=== PATIENT | male | born 1960 | race Caucasian/White ===

== ENCOUNTER 2021-04-25 12:52 | Day surgery (SDC) | payer OTHER, SELFPAY ==
[2021-04-25] VITALS (8 sets, daily range): BP systolic 106–156; BP diastolic 79–97; PULSE 62–77; RESP 16; TEMP 36.3; O2SAT 93–97; BMI 29.9
--- NOTE | 2021-04-25 14:30 | FORE_PTH ---
PATIENT: ANGIE FISCHER LOC: [facility] [place] U#:[id number] AGE/SX: 60/M ROOM: RE04/25/[address]: Dr. Evelia Meyer MD : [id number] BED: DIS: 04/25/2021 SPEC #: [id number] RECD: 04/28/21 07:53 STATUS: KEELY REAna Maria #: [id number] MARCIE: 04/25/21 14:[address]: Evelia Meyer DEPT: SURGICAL PATHOLOGY RECD BY: Savita Powers ENTERED: 04/28/21 09:42 SP TYPE: FOREIGN B OTHR DR: Dr. Kiel Garcia MD Tissues: FOREIGN BODY Procedures: Surgery Specimen Level I HEADER OPERATION: Battery change, spinal cord stimulator PRE-OP DIAGNOSIS: Exhausted spinal cord stimulator battery TISSUE SUBMITTED: End of life battery for gross only MICROSCOPIC DIAGNOSIS End of life spinal cord battery (removal): Unremarkable battery (gross diagnosis only). AM:reymundo 04/29/2021 MICROSCOPIC DESCRIPTION Slides are reviewed. GROSS DESCRIPTION Received in fixative is one container labeled with the patient's name and designated end of life battery. The specimen consists of a part metallic/part plastic battery bearing the following inscription ?Akhil, S/N [id number]? and measuring 5.8 x 5.8 x 1.5 cm. No tissue is submitted. This is for gross diagnosis only. / AM:reymundo 04/28/2021 CPT: 64082
[2021-04-25] MEDS: Lidocaine 1% /Epi 1:100 (50ml) 50 ML VIAL (14:54)
== END 2021-04-25 23:59 | disposition home or self-care (01) ==
LOC: SDC 12:57 → AC 13:00
PROVIDERS: PCP Family Medicine; Visit Provider Anesthesiology Pain Medicine
PROC: (CPT 63688; principal; 2021-04-25 14:15)
DX: Z45.42 Encounter for adjustment and management of neurostimulator (principal); M51.26 Other intervertebral disc displacement, lumbar region; M96.1 Postlaminectomy syndrome, not elsewhere classified; S33.5XXA Sprain of ligaments of lumbar spine, initial encounter; X58.XXXA Exposure to other specified factors, initial encounter; F17.200 Nicotine dependence, unspecified, uncomplicated; Z20.822 Contact with and (suspected) exposure to COVID-19
CPT/HCPCS: 63685; 00300; 87426; 88300; J7120; J2405

== ENCOUNTER 2024-10-11 15:46 | Emergency (ER) | payer OTHER, SELFPAY ==
[2024-10-11 15:47] VITALS: BP 176/112; PULSE 102; RESP 17; TEMP 37.2; O2SAT 98; BMI 29.7
--- NOTE | 2024-10-11 16:18 | CT_ITS ---
PROCEDURE: ABDOMEN/PELVIS W IV CONT ONLY 10/11/2024 REASON FOR EXAM: SWELLING, BACK AND LEFT BUTTOCKS TECHNIQUE: ABDOMEN/PELVIS W IV CONT ONLY Coronal and Sagittal reconstruction series were provided. CONTRAST: Isovue 370 VOLUME: 95 mL One or more dose reduction techniques were used (e.g., Automated exposure control, adjustment of the mA and/or kV according to patient size, use of iterative reconstruction technique. RADIATION DOSE SUMMARY: CTDlvol: 6.65+ 21.18 mGy DLP: 1277.14 mGycm COMPARISON: None. FINDINGS: Fat containing umbilical hernia. A spinal stimulator is present. L4-5 posterior fusion. Degenerative changes of the non fused levels. Minimal retrolisthesis of L1 on L2, L2 on L3, and L3 on L4. Mild atherosclerosis. Normal caliber abdominal aorta. No suspicious lymphadenopathy. Subcentimeter hepatic lesions which are too small to characterize. Cholelithiasis is present. No adjacent inflammatory changes are visualized wall thickening. The pancreas, spleen, and adrenals are unremarkable. Symmetric enhancement of the bilateral kidneys. Left kidney punctate nonobstructive nephrolithiasis (suboptimally visualized with intravenous contrast. No ureteral calculi or hydroureteronephrosis. The urinary bladder is unremarkable. Colonic diverticulosis. No adjacent inflammatory changes. Normal caliber large and small bowel. CT/Abdomen/Pelvis W IV Cont ONLY IMPRESSION: Left kidney nonobstructive nephrolithiasis. Cholelithiasis. Spondylosis and spondylolisthesis. L4-5 posterior fusion. Reading Location: [place] [id number]
--- NOTE | 2024-10-11 16:27 | ED.VIS.BACK ---
HPI History of Present Illness Chief Complaint: Back Informant: patient Narrative Narrative: Patient is 63-year-old male with history of spinal stimulator implant as well as spinal fusion who follows with Dr. Meyer presenting with swelling to his right buttocks and up his spine over his spinal stimulator. He states it started with swelling in his right buttocks area about a month ago but lately has had increased swelling of the lumbar spine as well. He denies associated drainage. Denies any fever or chills. States he is having a lot of pain and feels that his right leg is been a little weaker lately. Denies any bowel or bladder symptoms. States sitting in a car at a dining table makes the pain worse. He had previously taken ibuprofen with no significant relief. He does not take any opioid pain medication stating that it does not really help and gives him insomnia. Given the level of swelling he was concerned about waiting for outpatient imaging and came to the ER. [facility] Medical History Carpal tunnel syndrome on both sides Wears glasses Arthritis Injury of back Former smoker History of fracture of right ankle Home Medications ?Medication ?Instructions ?Recorded ?Last Taken ?Type cholecalciferol (vitamin D3) 50 50 mcg PO DAILY 04/24/21 Unknown History mcg (2,000 unit) capsule (Vitamin D3) methylprednisolone 4 mg tablets in See Rx Instructions PO .COMPLEX 10/11/24 Unknown Rx a dose pack (Medrol (North)) #21 tabs Allergy/AdvReac Type Severity Reaction Status Date / Time No Known Allergies Allergy Verified 10/11/24 15:50 Surgical History H/O spinal fusion History of tonsillectomy History of back surgery Social History Smoking Status: Current every day smoker tobacco type: cigarettes ROS ROS ED Constitutional Constitutional ED: Denies chills or fever(s) Gastrointestinal Gastrointestinal: Denies abdominal pain, nausea or vomiting Genitourinary Genitourinary ED: Denies dysuria or urinary frequency Musculoskeletal Musculoskeletal: Reports back pain Integumentary Reports other Details: swelling top right buttocks and over lumbar spine ; Denies rash Psychiatric Psychiatric: Denies anxiety Hematologic/Lymphatic Hematologic/Lymphatic: Denies easy bleeding or easy bruising EXAM Physical Exam Const Vital Signs: 10/11/24 15:47 10/11/24 16:35 10/11/24 17:17 Temperature 98.9 F Temperature Source Oral Pulse Rate 102 H 83 78 Respiratory Rate 17 16 16 Blood Pressure 176/112 H 174/93 H 159/94 H Blood Pressure Mean 133 120 115 Pulse Ox 98 97 94 Oxygen Delivery Method Room Air Room Air Room Air 10/11/24 19:00 10/11/24 19:30 Temperature 98.9 F Temperature Source Pulse Rate 64 68 Respiratory Rate 16 16 Blood Pressure 155/91 H 173/97 H Blood Pressure Mean 112 122 Pulse Ox 99 100 Oxygen Delivery Method Room Air Positive well nourished and well developed General Appearance ED: well developed and NAD HEENT Reports moist mucous membranes Neck supple Neck Narrative: No meningeal signs Resp normal respiratory effort and clear to auscultation bilaterally Cardio regular rate, regular rhythm and no murmurs GI normal to inspection, nondistended, normoactive bowel sounds, soft to palpation and non-tender Back/Spine Back/Spine Narrative: Surgical scars present over the lumbar spine. There is approximately 3 cm area fluctuance over lumbar spine at approximate level of L2. No associated drainage. No significant skin changes there i.e. erythema, induration or warmth. No midline bony tenderness present. Decreased range of motion of the lumbar spine on exam. Extremity normal to inspection Extremity Narrative: Able to balance on heels and toes with only some assistance. Soft tissue swelling and fluctuance appreciated over the right buttocks over the area of his spinal stimulator battery pack implant. No associated skin changes over this. No associated drainage. Neuro oriented x3 and no sensory deficits noted Sensorium / Orientation: alert Motor Exam: strength 5/5 throughout Psych mental status grossly normal Skin no rashes or lesions noted MDM MDM MDM Narrative Medical decision making narrative: Patient is 63-year-old male with chronic back pain and prior spinal stimulator, manage by Dr. Meyer, presenting for approximately 6 weeks right buttocks swelling and then swelling along his lumbar spine. differential includes CSF leak, abscess , and seroma. I spoke with Dr. Meyer who recommends CT for further evaluation. States that if it does not look like it is infected he will follow-up with him in the office given the subacute nature of this. Suspicion is this is more likely a CSF leak and not a seroma given that he is so far out postop almeida. Patient is given a dose of morphine for his chronic back pain and emergency with some improvement. Lab work very reassuring including CBC, BMP, lactate, CRP and ESR. None of this is consistent with infection. CT shows small volume fluid collection surrounding the spinal stimulator lead within the posterior superficial soft tissue measures 20 x 37 mm. Likely abscess or CSF leak. Given that he does not have any infectious symptoms or lab were consistent with infection/meningeal symptoms I will left lower suspicion for abscess. I will have him follow-up with . Pain management. Patient is agreeable with this. I will trial a Medrol Dosepak to see if it helps with his pain. He does not have any meningeal symptoms. He does not have any lightheadedness or symptoms consistent with herniation/low CSF pressure. I do not think he needs emergent neurosurgical consult or transfer. Lab Data Attestation: I reviewed the patient's lab results. Labs: Laboratory Results - last 24 hr 10/11/24 16:30 WBC 10.9 RBC 5.62 Hgb 17.2 H Hct 51.2 MCV 91.1 MCH 30.6 MCHC 33.6 RDW Std Deviation 47.2 H RDW Coeff of Christina 14.1 Plt Count 267 MPV 10.6 Immature Gran % (Auto) 0.800 Neut % (Auto) 59.9 Lymph % (Auto) 30.2 [place] % (Auto) 5.5 Eos % (Auto) 2.7 Baso % (Auto) 0.9 Absolute Neuts (auto) 6.5 Absolute Lymphs (auto) 3.29 Nucleated RBC % 0 ESR 12 Sodium 144 Potassium 4.1 Chloride 108 Carbon Dioxide 21.9 Anion Gap 14 BUN 11 Creatinine 1.15 Estim Creat Clear Calc 72.95 Est GFR (MDRD) Non-Af 72 BUN/Creatinine Ratio 9.9 L Glucose 85 Lactic Acid 1.1 Calcium 9.6 C-React Prot Ext Range < 3.00 Radiography Diagnostic Testing: Clinical Impression(s) from Imaging Studies Abdomen/Pelvis CT 10/11/24 16:18 IMPRESSION: Left kidney nonobstructive nephrolithiasis. Cholelithiasis. Spondylosis and spondylolisthesis. L4-5 posterior fusion. Reading Location: [id number] Discharge Plan Triage Chief Complaint: Back ED Provider: Sandy Witt Dx/Rx/DC Orders Clinical Impression: Acute exacerbation of chronic low back pain, Fluid collection at surgical site Instructions: ED Chronic Pain Prescriptions: New methylprednisolone [Medrol (North)] 4 mg tablets,dose pack See Rx Instructions .ROUTE .COMPLEX Qty: 21 0RF Rx Instructions: for 6 days No Action cholecalciferol (vitamin D3) [Vitamin D3] 50 mcg (2,000 unit) Capsule 50 mcg PO DAILY Primary Care Provider: Emely Conde Referrals: Kiel Garcia MD [Non-Staff] - Activity Restrictions/Additional Instructions: There is a fluid collection around her spinal stimulator. Concerned that there could be a slow leak of CSF fluid. Please continue follow-up with Dr. Meyer. If you develop severe headache, fever, neck stiffness, vision changes or new neurologic symptoms please return to the emergency room. Print Language: Mongolian Disposition Disposition: Home, Self Care
[2024-10-11 16:35] VITALS: BP 174/93; PULSE 83; RESP 16; O2SAT 97
[2024-10-11 17:17] VITALS: BP 159/94; PULSE 78; RESP 16; O2SAT 94
[2024-10-11 17:21] LABS: Hematocrit 51.2 % (40-54); Hemoglobin 17.2 g/dL (13.0-16.5); Immature Granulocytes Count 0.090 X10^3/uL (0.0-0.0); Mean Corp Hgb Conc 33.6 g/dL (32-36); Mean Corpuscular Volume 91.1 fL (80-94); Mean Platelet Vol. 10.6 fl (6.2-12.0); NRBC Flagged by Analyzer 0 % (0-5); Platelet Count 267 K/mm3 (150-450); RBC Distribution Width CV 14.1 % (11.6-14.6); RBC Distribution Width SD 47.2 fl (35.1-43.9); Red Blood Count 5.62 M/mm3 (4.6-6.2); White Blood Count 10.9 K/mm3 (4.4-11.0)
[2024-10-11 17:22] LABS: Anion Gap 14 (5-15); BUN 11 mg/dL (4-19); BUN/Creat Ratio 9.9 RATIO (10-20); Calcium,Total 9.6 mg/dL (7.6-11.0); Carbon Dioxide 21.9 mmol/L (21.0-32.0); Chloride 108 mmol/L (98-108); Estimated Creatinine Clearance 72.95 ml/min (50-250); Glucose 85 mg/dL (70-99); Potassium 4.1 mmol/L (3.3-5.1)
[2024-10-11 17:24] LABS: CRP < 3.00 mg/L (0.0-3.0)
[2024-10-11 19:00] VITALS: BP 155/91; PULSE 64; RESP 16; O2SAT 99
[2024-10-11 19:30] VITALS: BP 173/97; PULSE 68; RESP 16; TEMP 37.2; O2SAT 100
== END 2024-10-11 20:20 | disposition home or self-care (01) ==
PROVIDERS: Emergency Provider Emergency Medicine; PCP Nurse Practitioner Family; Visit Provider Emergency Medicine
DX: M54.50 Low back pain, unspecified (principal); G89.29 Other chronic pain; F17.210 Nicotine dependence, cigarettes, uncomplicated; Z96.82 Presence of neurostimulator; T88.8XXA Other specified complications of surgical and medical care, not elsewhere classified, initial encounter
CPT/HCPCS: 74177; 80048; 83605; 85025; 85652; 86140; 96374; 96375; 96376; 99283; A4216; J2405

== ENCOUNTER 2024-10-20 09:12 | Emergency (ER) | payer OTHER, SELFPAY ==
[2024-10-20 09:13] VITALS: BP 153/94; PULSE 89; RESP 14; TEMP 36.6; O2SAT 98; BMI 29.3
[2024-10-20 09:19] VITALS: BP 153/94; PULSE 88; RESP 16; TEMP 36.6; O2SAT 99
[2024-10-20 09:46] LABS: Hematocrit 49.8 % (40-54); Hemoglobin 16.8 g/dL (13.0-16.5); Immature Granulocytes Count 0.100 X10^3/uL (0.0-0.0); Mean Corp Hgb Conc 33.7 g/dL (32-36); Mean Corpuscular Volume 89.9 fL (80-94); Mean Platelet Vol. 9.9 fl (6.2-12.0); NRBC Flagged by Analyzer 0 % (0-5); Platelet Count 227 K/mm3 (150-450); RBC Distribution Width CV 14.1 % (11.6-14.6); RBC Distribution Width SD 46.8 fl (35.1-43.9); Red Blood Count 5.54 M/mm3 (4.6-6.2); White Blood Count 12.1 K/mm3 (4.4-11.0)
[2024-10-20] MEDS: Vancomycin HCl 1,250 MG in 0.9% Normal Saline (250mL Bag) 250 ML 167 MG IV (10:20)
[2024-10-20 10:21] VITALS: BP 120/73; PULSE 71; RESP 16; TEMP 36.4; O2SAT 95
[2024-10-20 10:27] LABS: Anion Gap 11 (5-15); BUN 15 mg/dL (4-19); BUN/Creat Ratio 14.0 RATIO (10-20); Calcium,Total 9.2 mg/dL (7.6-11.0); Carbon Dioxide 22.0 mmol/L (21.0-32.0); Chloride 110 mmol/L (98-108); Estimated Creatinine Clearance 77.29 ml/min (50-250); Glucose 98 mg/dL (70-99); Potassium 4.0 mmol/L (3.3-5.1)
[2024-10-20 11:00] VITALS: BP 124/73; PULSE 73; RESP 16; TEMP 36.6; O2SAT 98
[2024-10-20 12:23] VITALS: BP 147/79; PULSE 78; RESP 18; TEMP 36.6; O2SAT 99
--- NOTE | 2024-10-20 12:46 | EX.ED.DYSGE1 ---
HPI History of Present Illness Chief Complaint: Wound Informant: patient and spouse/S.O. Narrative Narrative: Patient has had a longtime spinal stimulator in his low back, for about 10 years but a new one was placed about 3.5 years ago. For the past 2 or 3 weeks, he has been having pain at that area and some swelling. He was seen here and had a CT scan that did not show anything, his pain management doctor, Dr. Meyer, told him he would need an MRI which they are trying to set up. In the meantime overnight, the area spontaneously burst open and now is draining fluid. He denies any other new symptoms or problems. He denies headache, neck stiffness, confusion, fevers or chills, pain or numbness in his legs, abdominal pain, dyspnea. PFSH PFS Medical History Carpal tunnel syndrome on both sides Wears glasses Arthritis Injury of back Former smoker History of fracture of right ankle Home Medications ?Medication ?Instructions ?Recorded ?Last Taken ?Type cholecalciferol (vitamin D3) 50 50 mcg PO DAILY 04/24/21 Unknown History mcg (2,000 unit) capsule (Vitamin D3) doxycycline monohydrate 100 mg 100 mg PO BID #20 CAPSULES 10/20/24 Unknown Rx capsule Allergy/AdvReac Type Severity Reaction Status Date / Time No Known Allergies Allergy Verified 10/20/24 09:13 Surgical History H/O spinal fusion History of tonsillectomy History of back surgery Social History Smoking Status: Current every day smoker tobacco type: cigarettes ROS ROS ED Constitutional Constitutional ED: Denies chills or fever(s) Eyes Eyes: Denies change in vision or diplopia ENT ENT ED: Denies rhinorrhea or sore throat Cardiovascular Cardiovascular: Denies chest pain or palpitations Respiratory/Chest Respiratory/Chest: Denies cough or dyspnea Gastrointestinal Gastrointestinal: Denies abdominal pain, diarrhea, nausea or vomiting Genitourinary Genitourinary ED: Denies dysuria or hematuria Musculoskeletal Musculoskeletal: Reports back pain; Denies neck pain Integumentary Reports as per HPI, abscess and wounds; Denies rash Neurologic Neurologic: Denies headache(s), paresthesias or weakness Psychiatric Psychiatric: Denies anxiety or suicidal thoughts EXAM Physical Exam Const Vital Signs: 10/20/24 09:13 10/20/24 09:19 10/20/24 10:21 Temperature 97.8 F 97.9 F 97.6 F L Temperature Source Oral Oral Oral Pulse Rate 89 88 71 Respiratory Rate 14 16 16 Blood Pressure 153/94 H 153/94 H 120/73 Blood Pressure Mean 113 113 88 Pulse Ox 98 99 95 Oxygen Delivery Method Room Air Room Air Room Air 10/20/24 11:00 10/20/24 12:23 Temperature 97.8 F 98 F Temperature Source Oral Pulse Rate 73 78 Respiratory Rate 16 18 Blood Pressure 124/73 H 147/79 H Blood Pressure Mean 90 101 Pulse Ox 98 99 Oxygen Delivery Method Room Air Positive well nourished and well developed General Appearance ED: well developed and NAD HEENT Reports moist mucous membranes normocephalic and atraumatic Eyes PERRL and EOMs intact bilaterally Neck full ROM and supple Resp normal respiratory effort and clear to auscultation bilaterally Cardio regular rate, regular rhythm and no murmurs GI non-tender and non-distended Auscultation: normoactive bowel sounds Palpation: soft Back/Spine no CVA tenderness Back/Spine Narrative: Well-healed surgical incision mid low back, at the caudal aspect of it there is a pinhole sized opening and pus is easily expressible from it. There is no overlying erythema in the area. General Back: other Limited range of motion due to pain. Lying in left lateral decubitus. Extremity normal to inspection General Extremety ED: Negative for edema, pulses abnormal or tenderness General Extremity: Negative for edema or pulses abnormal Neuro oriented x3, CN's II-XII intact bilaterally and no sensory deficits noted Sensorium / Orientation: awake and alert Motor Exam: strength 5/5 throughout Skin no rashes or lesions noted and no wounds MDM MDM MDM Narrative Medical decision making narrative: Clinically this is consistent with an abscess now that it is draining, but if it was not it would be difficult to tell given the induration and scar tissue from his remote surgery. We swabbed the area with chlorhexidine to sterilize it and then expressed fresh pus from the area to send for culture and then expressed as much as we could from the area to help drain it. Am not comfortable cutting it open since there is a stimulator there and I do not know how deep it is. We obtained some labs he has a mild leukocytosis, but he has normal vital signs and is well-appearing otherwise and does not septic. He is neurologically intact throughout. Nurses put a dressing on this area, I discussed with his pain management doctor, he agrees with giving him the dose of vancomycin that we gave him here in the IV, and then covering for MRSA and recommends that he be discharged on antibiotics to take for the next 4 days or so over the weekend, and then he will see him after that to schedule removal of the hardware and go from there, stating that emergently removing it and admitting him is not necessary. Discussed with the patient and family and given a prescription for doxycycline, as it has similar MRSA coverage with our 2024 antibiogram to Bactrim with the additional coverage of Enterococcus and Staph epidermidis. History & Record Review Additional record(s) reviewed:: Prior ED visit (and CT results) Lab Data Attestation: I reviewed the patient's lab results. Labs: Laboratory Results - last 24 hr 10/20/24 09:35 WBC 12.1 H RBC 5.54 Hgb 16.8 H Hct 49.8 MCV 89.9 MCH 30.3 MCHC 33.7 RDW Std Deviation 46.8 H RDW Coeff of Christina 14.1 Plt Count 227 MPV 9.9 Immature Gran % (Auto) 0.800 Neut % (Auto) 71.3 H Lymph % (Auto) 18.7 L [place] % (Auto) 6.0 Eos % (Auto) 2.5 Baso % (Auto) 0.7 Absolute Neuts (auto) 8.6 H Absolute Lymphs (auto) 2.27 Nucleated RBC % 0 Sodium 144 Potassium 4.0 Chloride 110 H Carbon Dioxide 22.0 Anion Gap 11 BUN 15 Creatinine 1.08 Estim Creat Clear Calc 77.29 Est GFR (MDRD) Non-Af 78 BUN/Creatinine Ratio 14.0 Glucose 98 Calcium 9.2 Management Discussion w/another healthcare provider: Drum Filler (pain management Dr. Meyer) Discharge Plan Triage Chief Complaint: Wound ED Provider: Jimmy Gardner Dx/Rx/DC Orders Clinical Impression: Abscess of lower back, Infection of spinal cord stimulator Instructions: ED Abscess Antibiotic Treatment Only Prescriptions: New doxycycline monohydrate 100 mg capsule 100 mg PO BID Qty: 20 0RF Continued cholecalciferol (vitamin D3) [Vitamin D3] 50 mcg (2,000 unit) Capsule 50 mcg PO DAILY Discontinued methylprednisolone [Medrol (North)] 4 mg tablets,dose pack See Rx Instructions .ROUTE .COMPLEX Qty: 21 0RF Rx Instructions: for 6 days Primary Care Provider: Emely Conde Referrals: Evelia Meyer MD [Med Staff - Active Staff] - As soon as possible Print Language: Jordanian Disposition Disposition: Home, Self Care
== END 2024-10-20 13:02 | disposition home or self-care (01) ==
PROVIDERS: Emergency Provider Emergency Medicine; PCP Nurse Practitioner Family; Visit Provider Emergency Medicine
DX: L02.212 Cutaneous abscess of back [any part, except buttock and flank] (principal); T85.733A Infection and inflammatory reaction due to implanted electronic neurostimulator of spinal cord, electrode (lead), initial encounter; F17.210 Nicotine dependence, cigarettes, uncomplicated
CPT/HCPCS: 80048; 85025; 87070; 87205; 96365; 96366; 99283; A4216

== ENCOUNTER 2024-10-23 12:03 | Day surgery (SDC) | payer OTHER, SELFPAY ==
[2024-10-23] VITALS (9 sets, daily range): BP systolic 83–142; BP diastolic 44–97; PULSE 74–86; RESP 14–16; TEMP 2.2–36.6; O2SAT 92–97; BMI 29.8
[2024-10-23] MEDS: Lactated Ringers 1,000 ML 15 ML IV (12:49)
--- NOTE | 2024-10-23 13:17 | PCM.PRE.AN2 ---
ASA Classification* ASA Classification ASA Classification: 3 Assessment & Plan Anesthesia* Anesthesia Assessment Anesthesia Assessment: Discussed sedation and/or anesthesia options, risks, benefits, and alternatives with patient/parents/legal guardian/POA. Questions invited. The patient/parents/legal guardian/POA seems to understand and agrees to proceed with anesthesia plan. Reviewed the physical assessment, medical history, allergy history and patient home medications list prior to surgery/procedure/anesthetic and documented any changes. Performed airway and anesthesia risk assessments. Anesthesia Type Anesthesia Type: General History Source History Obtained from:: Patient and Chart Anesthesia Focused Assessment* Temperature: 97.8 F Pulse Rate: 86 Blood Pressure: 142/97 Respiratory Rate: 16 Pulse Ox: 97 Oxygen Delivery Method: Room Air Airway Assessment Mouth opens: >3 cm Mallampati Score: III Teeth Condition: Caps/Crowns (Patient has been years on multiple front teeth.) Neck Range of motion (ROM): Limited ROM (Somewhat Decreased) Labs Anesthesia Preop lab: CBC WBC 12.1 K/mm3 (4.4-11.0) H 10/20/24 09:35 10/20/24 RBC 5.54 M/mm3 (4.6-6.2) 10/20/24 09:35 10/20/24 Hgb 16.8 g/dL (13.0-16.5) H 10/20/24 09:35 10/20/24 Hct 49.8 % (40-54) 10/20/24 09:35 10/20/24 Plt Count 227 K/mm3 (150-450) 10/20/24 09:35 10/20/24 CHEMISTRY Potassium 4.0 mmol/L (3.3-5.1) 10/20/24 09:35 10/20/24 Sodium 144 mmol/L (133-145) 10/20/24 09:35 10/20/24 BUN 15 mg/dL (4-19) 10/20/24 09:35 10/20/24 Creatinine 1.08 mg/dL (0.70-1.20) 10/20/24 09:35 10/20/24 Glucose 98 mg/dL (70-99) 10/20/24 09:35 10/20/24 COAG Pre-Assessment Diagnosis/Proposed Procedure Planned Operative Procedure(s): removal spinal cord stimulator Anesthesia History Anesthesia History - teaseler: Anesthesia History - teaseler Hx Hospitalization No 10/23/24 12:50 Any Problems With Anesthesia No 10/23/24 12:50 Cholinesterase deficiency No 10/23/24 12:50 You/Your Family Experience No 10/23/24 12:50 fever (hyperthermia) with Relationship Recent Exposure to Contagious No 10/23/24 12:44 Disease Does patient have nerve Yes 10/23/24 12:50 stimulator Patient instructed to have device shut off --Does patient have Pacemaker No 10/23/24 12:44 or ICD? When Was Last Pacemaker Check QUESTION #4 FULL TEXT: You/Your Family Experience fever (hyperthermia) with Anesthesia Last Oral Intake Last Oral intake: Last Oral Intake NPO since 19:00 10/23/24 12:44 Meds taken in AM with sips of No 10/23/24 12:44 water? Meds patient instructed to take am of surgery PONV PONV - teaseler: PONV - teaseler Female No 10/23/24 12:50 HX of Motion Sickness No 10/23/24 12:50 HX of N/V After Surgery No 10/23/24 12:50 Non-Smoker No 10/23/24 12:50 Duration of Surgery greater No 10/23/24 12:50 than 60 minutes Number of Risk Factors PONV Score Height & Weight Height & Weight: Anesthesia: Height & Weight Height 5 ft 8 in 10/23/24 12:44 Weight: 89 kg 10/23/24 12:44 Body Mass Index (BMI) 29.8 10/23/24 12:44 Respiratory Assessment Respiratory Assessment - teaseler: Respiratory Tract Infection Hx - teaseler Hx Respiratory Tract Infection No 10/23/24 12:50 STOP Sleep Apnea STOP Sleep Apnea - teaseler: STOP Sleep Apnea - teaseler Hx Hypertension Yes 10/23/24 12:50 Hx Sleep Apnea No 10/23/24 12:50 CPAP BIPAP Do you snore loudly (louder No 10/23/24 12:50 than talking or can be heard Do you often feel tired/ Yes 10/23/24 12:50 fatigued/ sleepy during daytime? Has anyone observed you stop No 10/23/24 12:50 breathing during sleep? STOP Results Positive 10/23/24 12:50 QUESTION #5 FULL TEXT : Do you snore loudly (louder than talking or can be heard through closed doors)? 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 Specify any problems Hx of Preganancy in last 3 N/A 10/23/24 12:50 Months Nurse Filling Out Transfusion MLEE 10/23/24 12:50 & Questions: Date: 10/23/24 10/23/24 12:50 Time: 12:54 10/23/24 12:50 Patient unable to answer at this time (ie. confused, unrespo /Reproduction History /Reproductive History - teaseler: /Reproductive Hx- teaseler Hx Now No 10/23/24 12:50 Gestational Age (in weeks): EDC: Hx Hx Para Hx Section SAB No 10/23/24 12:50 Active Medications Active Medications: Current Medications Generic Name Dose Route Start Last Admin Trade Name Freq PRN Reason Stop Dose Admin Lactated Ringer's 1,000 mls @ 15 mls/hr 10/23/24 12:15 10/23/24 12:49 IV 15 mls/hr .Q48H REYNALDO Administration Cefazolin Sodium 2 gm/ Sodium 110 mls @ 200 mls/hr 10/23/24 13:00 Chloride IV 10/23/24 13:32 INTRAOP ONE PFSH Medical History Carpal tunnel syndrome on both sides Wears glasses Arthritis Injury of back History of fracture of right ankle Home Medications ?Medication ?Instructions ?Recorded ?Last Taken ?Type cholecalciferol (vitamin D3) 50 50 mcg PO DAILY 04/24/21 Unknown History mcg (2,000 unit) capsule (Vitamin D3) doxycycline monohydrate 100 mg 100 mg PO BID #20 CAPSULES 10/20/24 10/22/24 Rx capsule Allergy/AdvReac Type Severity Reaction Status Date / Time No Known Allergies Allergy Verified 10/23/24 12:40 Surgical History H/O spinal fusion History of tonsillectomy History of back surgery Social History Smoking Status: Current every day smoker tobacco type: cigarettes Review of Systems (Anesthesia) ROS Narrative System reviewed and no additional complaints, except as documented.
[2024-10-23] MEDS: Bupiv/Epi 0.25% 30 ML Vial (14:50)
--- NOTE | 2024-10-23 15:04 | PCM.POST.ANE ---
Anesthesia: Postop Eval I Current Vital Signs Temperature: 36 F Pulse Rate: 76 Blood Pressure: 97/66 Respiratory Rate: 14 Pulse Ox: 93 Assessment Airway patent: Yes Spontaneous unlabored respirations: Yes nausea: No Vomiting: No Anesthesia Complication: No Fluid Hydration Crystalloid volume administer (ml): 700 Total IV fluid infused: 700 Progress Note Anesthesia document: Postop Eval 1 completed: Yes
--- NOTE | 2024-10-23 17:53 | POSTOPAN2_ITS ---
Anesthesia Postop Eval I Sum Postop Eval Completion status Anesthesia document: Postop Eval 1 completed: Yes Anesthesia Postop Eval I Summary Anesthesia Postop Eval I Summary: Anesthesia Postop Eval I: Assessment Summary Airway patent Yes 10/23/24 15:04 LATIN [email or web address] Spontaneous unlabored Yes 10/23/24 15:04 LATIN [email or web address] respirations Mental status nausea No 10/23/24 15:04 LATIN [email or web address] Vomiting No 10/23/24 15:04 LATIN [email or web address].[email or web address] Anesthesia Postop Eval I: Fluid Summary Crystalloid volume administer 700 10/23/24 15:04 LATIN [email or web address] (ml) Colloids volume administered ( ml) Blood Product volume administered (ml) Total IV fluid infused 700 10/23/24 15:04 LATIN PROFESSOR.[email or web address] Anesthesia Postop Eval I: Summary Notes Anesthesia Complication No 10/23/24 15:04 LATIN [email or web address].[email or web address] Anesthesia Complication Comment: Post-operative progress note Anesthesia: Postop Eval II Evaluation Mental status: Awake and Calm Pain Level: 1 nausea: No Vomiting: No Complications Anesthesia Complication: No
--- NOTE | 2024-10-23 17:53 | PCM.POSTANE2 ---
Anesthesia Postop Eval I Sum Postop Eval Completion status Anesthesia document: Postop Eval 1 completed: Yes Anesthesia Postop Eval I Summary Anesthesia Postop Eval I Summary: Anesthesia Postop Eval I: Assessment Summary Airway patent Yes 10/23/24 15:04 MACHINE BUNCH [email or web address] Spontaneous unlabored Yes 10/23/24 15:04 MACHINE BUNCH [email or web address] respirations Mental status nausea No 10/23/24 15:04 MACHINE BUNCH [email or web address] Vomiting No 10/23/24 15:04 MACHINE BUNCH [email or web address].[email or web address] Anesthesia Postop Eval I: Fluid Summary Crystalloid volume administer 700 10/23/24 15:04 MACHINE BUNCH [email or web address].[email or web address] (ml) Colloids volume administered ( ml) Blood Product volume administered (ml) Total IV fluid infused 700 10/23/24 15:04 MACHINE BUNCH [email or web address].[email or web address] Anesthesia Postop Eval I: Summary Notes Anesthesia Complication No 10/23/24 15:04 MACHINE BUNCH [email or web address].[email or web address] Anesthesia Complication Comment: Post-operative progress note Anesthesia: Postop Eval II Evaluation Mental status: Awake and Calm Pain Level: 1 nausea: No Vomiting: No Complications Anesthesia Complication: No
== END 2024-10-23 15:50 | disposition home or self-care (01) ==
LOC: SDC 12:13 → AC 12:14
PROVIDERS: PCP Nurse Practitioner Family; Referring Provider Anesthesiology Pain Medicine; Visit Provider Anesthesiology Pain Medicine
PROC: (CPT 63688; principal; 2024-10-23 13:15)
DX: T85.734A Infection and inflammatory reaction due to implanted electronic neurostimulator, generator, initial encounter (principal); X58.XXXA Exposure to other specified factors, initial encounter; M51.26 Other intervertebral disc displacement, lumbar region; M96.1 Postlaminectomy syndrome, not elsewhere classified; I10 Essential (primary) hypertension; G89.29 Other chronic pain; F17.210 Nicotine dependence, cigarettes, uncomplicated; Z79.899 Other long term (current) drug therapy
CPT/HCPCS: 63688; 63661; 11042; 87070; 87075; 87205; J2405